=== PATIENT | female | born 2000 | race Caucasian/White ===

== ENCOUNTER 2025-04-18 08:24 | Outpatient (AMB) | payer OTHER, SELFPAY ==
--- OUTSIDE RECORDS SUMMARY | 2025-04-18 08:28 | XMS_ITS | Clinical Summary ---
Author Organization 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 Active ferrous sulfate 325 mg (65 mg elemental iron) tablet Take 1 tablet (325 mg total) by mouth 1 (one) time each day with breakfast. 30 each 09/11/2024 5 Active oxyCODONE (ROXICODONE) 5 mg immediate release tablet Take 1 tablet (5 mg total) by mouth every 4 (four) hours if needed (Breakthroug h pain). Max Daily Amount: 30 mg 15 tablet 09/10/2024 Active FLUoxetine (PROzac) 10 mg capsule Take 1 capsule (10 mg total) by mouth 1 (one) time each day. 30 each 11 12/28/2024 6 Active Active Problems Problem Noted Date Diagnosed Date Spontaneous onset of labor a fter 37 but before 39 completed weeks gestation with delivery by planned section, delivered with mention of complication 09/10/2024 Abdominal pain 08/21/2024 Anxiety 08/21/2024 Shoulder pain 08/21/2024 Pediculosis capitis 08/21/2024 Wrist joint pain 08/21/2024 Sinusitis 08/21/2024 Large for dates 07/12/2024 Overview (07/16/2024): 07/06/2024 Ultasound @ 31w 6 d growth at 84 %tile, Anemia affecting in third trimester Overview (07/16/2024): Iron once daily Last Assessment & Plan: Has not started iron supplements yet, reports will attempt to get from pharmacy today Rev'd iron rich foods Insufficient care in first trimester Obesity affecting 04/09/2024 Overview (07/16/2024): BMI 42.38 HgbA1C and 1 hour GTT at initial labs ASA 162mg at 12 weeks until delivery Detailed anatomy ultrasound Repeat GTT 24-28 weeks if early is normal Pre-preg BMI 35-39.9: NST weekly at 37 weeks Pre-preg BMI >40: NST weekly at 34 weeks Pre-preg BMI >45: NST weekly at 32 weeks Growth US at 32 and 36 weeks for BMI >40 BMI of 50 by 28wks transfer to [facility] DVT prophylaxis- Lovenox if CS and BMI >35 Last Assessment & Plan: Ultasound 07/06/24 @ 31w 6d growth at 84 %tile, Start NSTs next appt, Plan growth sono around 36 weeks Acute pharyngitis 03/28/2008 Acute upper respiratory infection 07/10/2007 Resolved Problems Problem Noted Date Diagnosed Date Resolved Date Delivery by section at 37-39 weeks of gestation due to labor 09/09/2024 09/10/2024 Overview (09/10/2024): 24 yo s/p P C/S for NRFHT, POD #2 Doing well Chronic anemia---> hemodynamically stable Desires an early discharge home OK to d/c home today Assessment & Plan (09/10/2024 10:44 AM EST): S/p P C/S for NRFHT, POD#1 Doing well, good pain control Am CBC is pending Encourage to ambulate, d/c amanda Continue care map 40 weeks gestation of 09/07/2024 09/10/2024 Assessment & Plan (09/09/2024 7:52 AM EST): S/p P C/S for NRFHT, POD#1 Doing well, good pain control Am CBC is pending Encourage to ambulate, d/c amanda Continue care map GBS (group B Streptococcus c arrier), +RV culture, currently 08/17/2024 09/10/2024 Overview (08/17/2024): treat in labor Maternal varicella, non-immune 04/10/2024 09/10/2024 Overview (07/16/2024): Vaccinate PP Depression 04/09/2024 09/10/2024 Overview (09/04/2024): She has a chronic hx of depression which she feels is worsening during the , stopped going to talk therapy as she felt the person kept asking her the same questions . She has never been on antidepressants. List of self referral behavioral health given to pt and I discussed with her options to discuss with provider. Pt states understanding. She denies SI/SA 06/28/2024 started Zoloft Last Assessment & Plan: Has not started Zoloft yet, but reports feeling well on today Assessment & Plan (09/04/2024 10:18 AM EST): 09/04/2024 Depression screen 16, denies thought of self-harm. she opts not to take the Zoloft because it makes her feel nauseas, plan sw consult in hosp Immunizations Name Administration Dates Next Due DTaP, Unspecified 07/14/2006, 2,2001,05/24,2001 HPV 9-valent (Gardisil) 9yo to less than 46yo 09/06/2019,10/18/2017 Hep B, Unspecified 2001,2001, 001 HiB 06/19/2002, 1,2001,03/23 IPV Inactivated polio (Ipol) 6wks and older 07/14/2006,08/07/2002,2001,03/23 MMR, measles mumps and rubel la Live (Priorix; M-M-R II) 12mo and older 08/20/2005,06/19/2002 Meningococcal MCV4P 10/18/2017,10/15/2013 Pneumococcal Conjugate Vacci ne, 7 Valent 03/23/2002,2001,2001 Tdap Tetanus diptheria acell ular pertussis (Boostrix; Adacel) 7yo and older 06/14/2024,10/15/2013 Varicella live (Varivax) 12m o and older 04/02/2008,06/19/2002 Surgical History Surgery Date Site/Laterality Comments OTHER SURGICAL HISTORY PROCEDURE: DENIES PREVIOUS SURGERY Medical History Medical History Date Comments Patient denies medical problems DX:Patient denies medical problems Obesity 04/09/2024 DX:Obesity; COMM ENT: bmi 42.38 Mild intermittent asthma, uncomplicated DX:Mild intermittent asthma, uncomplicated Depression DX:Depression Family History Medical History Relation Name Comments No Known Problems Brother Diabetes Father No Known Problems Half-Brother x2 No Known Problems Half-Sister x2 Asthma Mother Diabetes Mother Other: other Other cousin high functionin g autism Other: other Uncle paternal down syndrome , cerebral palsy Relation Name Status Comments Brother Alive Father Alive Half-Brother x2 Alive Half-Sister x2 Alive Maternal Grandfather Maternal Grandmother Mother Alive Other cousin Alive Paternal Grandfather Paternal Grandmother Uncle paternal (Age 43) Social History Tobacco Use Types Packs/Day Years Used Date Smoking Tobacco: Never Smokeless Tobacco: Never Alcohol Use Standard Drinks/Week Comments Never 0 (1 standard drink = 0.6 oz pur e alcohol) Housing Instability Answer Date Recorde d Are you worried that in the next 2 months you may not have stable housing? No 09/07/2024 Food Access & Nutrition Answer Date Rec orded Do you have access to a vari ety of food including fruits and vegetables? Yes 09/07/2024 Access to Healthcare Answer Date Record ed Within the last 3 months, ho w many times did you visit the emergency department for your medical care? 1 09/07/2024 Health Literacy Answer Date Recorded How often do you need to hav e someone help you when you read instructions, pamphlets, or other written material from your doctor or pharmacy? Never 09/07/2024 Caregiver: How often do you need to have someone help you when you read instructions, pamphlets, or other written material from your doctor or pharmacy? Not on file 09/07/2024 Financial Risk Answer Date Recorded How hard is it for you to pa y for the very basics like food, housing, medical care, and air conditioning / heating? Not very hard 09/07/2024 Transportation Answer Date Recorded Has the lack of transportati on kept you from meetings, work, or from getting things needed for daily living? No Has the lack of transportati on kept you from medical appointments or from getting medications? No 09/07/2024 Social Isolation Answer Date Recorded How often do you feel lonely or isolated from th ose around you? Never 09/07/2024 Food Risk Answer Date Recorded Within the past 12 months we worried whether our food would run out before we got money to buy more. Never true 09/07/2024 Within the past 12 months th e food we bought just didn't last and we didn't have money to get more. Never true 09/07/2024 Dependent Care Answer Date Recorded Do you need help finding or paying for care for your loved ones. For example, child's nurse or elderly care for an older adult? No 09/07/2024 Education Answer Date Recorded Do you think completing more education or training, like finishing a GED, going to college, or learning a trade, would be helpful for you? No 09/07/2024 Employment and Income Answer Date Recor ded During the last four weeks, have you been actively looking for work? No 09/07/2024 Living Situation Answer Date Recorded What is your living situation? 1 11/08/2023 Interpersonal Safety Answer Date Record ed Physical Abuse 09/07/2024 Verbal Abuse 09/07/2024 Comments No Sex and Gender Information Value Date Recorded Sex Assigned at Not on file Legal Sex Female 11:30 PM EST Gender Identity Not on file Sexual Orientation Straight 09/07/2024 9: 01 AM EST Obstetrics History Para Term AB IAB SAB Ectopic Multiple Livin g Live Births 1 1 1 0 1 1 Date Outcome GA Total Labor Labor/2nd/3rd Weight Sex Type Anes PTL Yaima A1 A5 Name Clin 2023 Term 41w 0d 15h 28m 13h 27m/0h 59m/1h 02m 3910 g (137.9 oz) F CS-LT ranv Epidur al N Livin g 8 [facility] Isha martinez MD Complications: Intolera nce Delivery Location[facility] ([facility] Last Filed Vital Signs Vital Sign Reading Time Taken Comments Blood Pressure 116/81 09/10/2024 9:15 AM EST Pulse 94 09/10/2024 9:15 AM EST Temperature 36.6 C (97.9 F) 09/10/2024 9:15 AM EST Respiratory Rate 18 09/10/2024 9:15 AM EST Oxygen Saturation 100% 09/10/2024 9:15 AM EST Inhaled Oxygen Concentration - - Weight 109 kg (240 lb) 09/07/2024 8:51 AM EST Height 152.4 cm (5') 09/07/2024 8:51 AM EST Body Mass Index 46.87 09/07/2024 8:51 AM EST Plan of Treatment Scheduled Procedures Name Priority Associated Diagnoses Date/Ti me SECTION 40 weeks gestation of Health Maintenance Due Date Last Done Comments Hepatitis B Vaccines (3 of 3 - 3-dose series) 01/09/2002 2001, 2001, 2001 HPV Vaccines (3 - 3-dose series) 11/29/2019 09/06/2019, 10/18/2017 Cholesterol Screening (Lipid Panel) 09/05/2022 COVID-19 Vaccine ( season) 2024 Depression Screening 10/03/2024 09/03/2024 Gonorrhea/Chlamydia Screening 04/13/2025 04/13/2024 Influenza Vaccine (#1) 2025 Social Influencers of Health Screening 09/07/2025 09/07/2024 Cervical Cancer Screening: Pap Smear 04/17/2027 04/17/2024, 04/17/2024, 04/13/2024 DTaP,Tdap,and Td Vaccines (8 - Td or Tdap) 06/14/2034 06/14/2024, 10/15/2013, 07/14/2006, Additional history exists Pneumococcal Vaccine: Pediatrics (0 to 5 Years) and At-Risk Patients (6 to 49 Years) Completed 03/23/2002, 2001, 2001 HIB Vaccines Completed 06/19/2002, 07/05, 2001, Additional history exists MMR Vaccines Completed 08/20/2005, 06/19/2002 IPV Vaccines Completed 07/14/2006, 01/2002, 2001, Additional history exists Varicella Vaccines Completed 04/02/2008, 06/19/2002 Meningococcal ACWY Vaccine Completed 10/18/2017, HIV Screening Completed 04/09/2024 Hepatitis C Screening Completed 04/09/2024 Hepatitis A Vaccines Aged Out No long er eligible based on patient's age to complete this topic Meningococcal B Vaccine Aged Out No l onger eligible based on patient's age to complete this topic RSV Immunization Patients Under 20 months Aged Out No longer eligible based on patient's age to complete this topic Procedures Procedure Name Priority Date/Time Associated Diagnosis Comments HPV Routine 04/17/2024 GONORRHEA/CHLAMYDIA SCRREENING Routine 04/13/2024 HEPATITIS C SCREENING Routine 04/09/2024 HIV SCREENING Routine 04/09/2024 from Last 3 Months or Most Recently Relevant to Health Maintenance Results * Cervical Cancer Screening: HPV (04/17/2024) Pathologist [facility] Cervical Cancer Screening: HPV negative, abstracted [facility] Provider HEALTH MAINTENANCE Final Result * Gonorrhea/Chlamydia Screening (04/13/2024) Pathologist [facility] Gonorrhea/Chla mydia Screening abstracted [facility] Provider HEALTH MAINTENANCE Final Result * HIV Screening (04/09/2024) [facility] HIV Screening abstracted [facility] Provider HEALTH MAINTENANCE Final Result * Hepatitis C Screening (04/09/2024) [facility] Hepatitis C Screening abstracted us Historical Provider HEALTH MAINTENANCE Final Result from Last 3 Months or Most Recently Relevant to Health Maintenance Advance Directives * Full Code - Default (Latest Code Status on File) Date Activated Date Inactivated Comments 09/08/2024 3:38 PM 09/10/2024 4:17 PM * Full Code - Confirmed Date Activated Date Inactivated Comments 09/07/2024 11:41 AM 09/08/2024 3:38 PM Care Teams 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
--- NOTE | 2025-04-18 09:13 | A.OFFVIS_ITS ---
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 44.5: Details: Start time: 9.01am, End time: 9.46am I spent 40 minutes speaking with the patient on the phone plus an additional 5 minutes reviewing and updating records for a total of 45 minutes HPI Comments Details: Previous weight loss efforts: self diets and exercise Wakes up: 6.30am, Sleeps: 10pm Breakfast: 5d/wk at 8am (eggs or bagel) Lunch: 1-2pm (rice, potatoes, chicken) Dinner: 7pm (as lunch) Snacks: 10am (granola bars), 4pm (chips) Exercise: none Beverages: Coffee (1 cup/d with cream and sugar), Tea: none, Soda: diet soda, Juice: none, ETOH: none PFSH Medical History (Updated 04/18/25 @ 09:17 by Barrett Lynch MD) Anxiety Depression Morbid obesity Surgical History (Updated 03/27/25 @ 14:49 by Yeimy Barksdale CMA) Hx of section Family History (Updated 03/27/25 @ 14:50 by Yeimy Barksdale CMA) Mother No problems noted. Father Diabetes Daughter No problems noted. Social History (Updated 03/27/25 @ 14:49 by Yeimy Barksdale CMA) Alcohol intake: never Patient Tobacco Use Status: Never used Tobacco Telehealth Telehealth Telehealth Platform: Telephone Location of provider rendering services: practice address Location of patient: address on file Patient Identification confirmed using: Name, : Yes Telehealth method: voice only Patient verbally consented to treatment: Yes Patient verbally consented to billing insurance company: Yes Patient informed of any privacy concerns related to visit: Yes Minutes spent on Phone/Video with Pt.: 45 Assessment & Plan Assessment & Plan (1) Morbid obesity: Code(s): E66.01 - Morbid (severe) obesity due to excess calories Category: Medical Plan: 1. Plan for lap sleeve gastrectomy. If diaphragmatic or ventral hernias are present at time of surgery, these will be repaired laparoscopically as well. I emphasized the importance of close follow-up, adherence to instructions and good communication. The surgery does not replace the need to change your lifestlyle which is the cause of the obesity problem. The surgery provides the motivation to try again to change your lifestyle, it reduces the appetite and make the transition to a better lifestyle easier and doubles the amount of weight you would lose compared to doing the lifestyle change without the surgery. You will need to be on a liquid diet with protein shakes for 2 weeks before surgery to maximize weight loss and boost your nutritional status to recover better from surgery and also for the first two weeks after surgery to let the stomach heal before we introduce other foods. After the first 2 weeks we will introduce protein bars and soft foods like scrambled eggs, cottage cheese and yogurt and after the 6th week will introduce meat, fish and cooked vegetables in small amounts. Over time you should be able to eat everything in small amounts. Side effects like nausea, vomiting, heartburn or abdominal pain are not common in the practice unless you are not following in the practice. This operation requires lifetime commitment to following in our practice and communication with me. You will much less weight and experience side effects if you don?t communicate or not following in the practice. Complications are rare and in our practice is about 1/10 of the national average. However, you can develop bleeding that may require transfusion (hasn?t happened for year in the practice), you may from complications (we did not have any deaths in the practice) and infections. Infections are usually a result of breakdown in communication or not understanding or following directions correctly. They are difficult to treat, they can happen during the first 6 weeks, they may require to be in the hospital for weeks or even months, not being able to eat by mouth and you may have drains and surgeries to try and correct the issue. Other risks and complications include possible conversion to an open procedure, leaks, small bowel obstruction, blood clots, cardiac, or pulmonary complications, as intermediate project manager complications such as ulcers, insufficient weight loss and vitamin deficiencies. 2.Nutritional counseling. Start with one premade PREMIER protein (buy at [employer], or [employer], or [employer]) shake (mix 4oz of PREMIER and NOT the whole bottle WITH 4oz low fat unsweetened almond milk) at 8am-10am, 1 protein bar (16gr Fit Crunch protein bars, buy at [employer], [employer] or [employer]) at 11am-1pm, another premade PREMIER protein (buy at [employer], or [employer], or [employer]) shake (mix 4oz of PREMIER and NOT the whole bottle with 4oz low fat unsweetened almond milk) at 2pm-4pm, dinner at 5pm (8 forks of protein and 8 forks of salad/vegetables) and one more Fit Crunch protein bar after dinner at 7pm-9pm. So you do 2 protein shakes, 2 protein bars and one meal per day. Meal to include lean meat (beef, fish, pork, turkey, chicken), or north korean yogurt, or egg whites, or beans with a salad with olive oil and fruits (berries, pears, apples, kiwi). Avoid salt, breads, potatoes, rice, pasta, desserts. 3. You will receive a link of our software vika to generate an individualized nutritional and exercise plan specific for you. Please send me a screenshot of the plans you will generate 3. Each shake would be drunk slowly, like coffee in a period of 2 hours. 4. Cut each bar in 4 pieces and eat each piece in 30min to make each bar last 2 hours. 5. I emphasized the importance of measuring accurately the food portion and measure it when serving the food in plate 6. The meal portions include 8 full-size forks of meat and 8 full-size forks of salad. You always eat the meat portion but you can replace up to 4 forks for salad/vegetables with rice, potatoes or pasta, or a fruit if you like. The less you do it the better weight loss will be. 7. One full-size fork is what it can be scooped on the fork without falling aside and not what can be bit with the fork. Use regular forks like those you find in a typical restaurant. 8. Please buy the body composition scale we discussed and send me weight measurements as soon as possible and then once a week. Always include your diet and exercise plan. 9. Start walking outside daily, tracking calories with a goal of 300 calories per day, daily. Goal is to burn 2000 calories per week on exercise, which means either 300 calories daily, or 400 calories 5 days per week, or 500 calories 4 days per week, or 650 calories 3 days per week. 10. The best choice would be to purchase a stationary bike at home that can track calories. When you get one, start stationary bike at a resistance level of 4.0 Increase level by 1.0 every 3 min to a max level of 10.0. Stay at this level for 3 min and then return to level 4.0 and repeat same steps until 300 calories are burned. Goal is to burn 2000 calories per week on exercise 11. It is important of avoiding and for at least 18 months postoperatively and has been discussed at the infosession. 12. Goal is to lose at least 1.5-2lbs per week 13. Goal to lose 10% of your weight before surgery, which is about 22lbs. Ultimate weight goal: 206lbs before surgery 14. Please follow the diet plan exactly without any change. If you don't like something about the plan or you feel hungry you need to communicate with me so I can help you revise the plan. You should not change the plan yourself 15. To be scheduled for EGD to assess the stomach's anatomy. The possibility of biopsies was discussed. Patient needs to avoid use of NSAIDs and aspirin for 1 week prior to EGD. You must be on liquids only the day before your endoscopy. Risks of perforation and bleeding was discussed with the patient. This will be an outpatient procedure with IV sedation. 16. As of tomorrow, please send me a picture of your meal plate after you measure it, but before you consume it. Orders: Orders Hemoglobin A1c Today E66.01 - Morbid (severe) obesity due to excess calories H Pylori Breath Test Today E66.01 - Morbid (severe) obesity due to excess calories Complete Blood Count Auto Diff Today E66.01 - Morbid (severe) obesity due to excess calories Lipid Panel Today E66.01 - Morbid (severe) obesity due to excess calories IRON PROFILE Today E66.01 - Morbid (severe) obesity due to excess calories Zinc Today E66.01 - Morbid (severe) obesity due to excess calories C Reactive Protein Today E66.01 - Morbid (severe) obesity due to excess calories Vitamin A Today E66.01 - Morbid (severe) obesity due to excess calories Ferritin Today E66.01 - Morbid (severe) obesity due to excess calories US abdomen comp w elastography Today E66.01 - Morbid (severe) obesity due to excess calories ECG 12 lead EKG Today E66.01 - Morbid (severe) obesity due to excess calories Insulin Today E66.01 - Morbid (severe) obesity due to excess calories Comprehensive Met. Panel Today E66.01 - Morbid (severe) obesity due to excess calories Vitamin B12 and Folate Today E66.01 - Morbid (severe) obesity due to excess calories Vitamin B1 Today E66.01 - Morbid (severe) obesity due to excess calories TSH reflex Free T4 Today E66.01 - Morbid (severe) obesity due to excess calories Vitamin D 25-OH Total Today E66.01 - Morbid (severe) obesity due to excess calories XR chest 2V Today E66.01 - Morbid (severe) obesity due to excess calories FL upper GI w air Today E66.01 - Morbid (severe) obesity due to excess calories Referrals Behavioral Health Referral E66.01 - Morbid (severe) obesity due to excess ca [place] Nutrition/Dietitian Referral E66.01 - Morbid (severe) obesity due to excess calories
[2025-04-18 09:21] VITALS: BMI 44.5
== END 2025-04-18 09:47 | disposition home or self-care (01) ==
LOC: HO.HBS 08:24
PROVIDERS: PCP Internal Medicine; Visit Provider Surgery
DX: E66.01 Morbid (severe) obesity due to excess calories (principal); Z68.41 Body mass index [BMI] 40.0-44.9, adult
CPT/HCPCS: 98010